=== PATIENT | female | born 1990 | race Two or more races ===

== ENCOUNTER 2016-11-02 17:42 | Emergency (ER) | payer MEDICAID ==
[~2016-11-02] VITALS: Ht 157.5 cm; Wt 73.5 kg
[~2016-11-02 17:42] MED LIST: PREN27TA7 OR
[2016-11-02 19:12] VITALS: BP 112/61
[2016-11-02 19:39] LABS: Urine Bilirubin Negative (Negative); Urine Blood TRACE /uL (Negative); Urine Ca Oxalate Crystal FEW (None Seen); Urine Color Yellow (Yellow); Urine Glucose Normal (Normal); Urine Ketone 1+ (Negative); Urine Mucus FEW (None Seen); Urine Nitrite Negative (Negative); Urine RBC 13 /hpf (0 - 4); Urine Squamous Epithelial Cell MOD /hpf (<5); Urine Urobilinogen Normal (Negative)
[2016-11-02 20:25] LABS: Basophils # (auto) 0.1 uL; Basophils % (auto) 0.4 % (0.0-2.0); Eosinophils # (auto) 0.1 uL; Eosinophils % (auto) 0.6 % (0.0-7.0); Hematocrit 40.4 % (36.0-46.0); Hemoglobin 13.6 g/dL (12.2-16.2); Lymphocytes # (auto) 2.3 uL; Lymphocytes % (auto) 14.1 % (10.0-50.0); Mean Corpuscular Hemoglobin 29.2 pg (28.0-32.0); Mean Corpuscular Hgb Conc. 33.7 g/dL (32.0-36.0); Mean Corpuscular Volume 86.8 fL (80.0-100.0); Mean Platelet Volume 6.4 fL (7.4-10.4); Monocytes # (auto) 0.6 uL; Neutrophils # (auto) 13.1 uL; Neutrophils % (auto) 80.9 % (37.0-80.0); Platelet Count (auto) 349 10^3/uL (140-450); Red Cell Distribution Width 13.4 % (11.6-16.0); White Blood Cell 16.2 10^3/uL (4.4-10.8)
[2016-11-02 20:35] LABS: Albumin 3.3 g/dL (3.4-5.0); BUN/Creatinine Ratio 15.7; Bilirubin, Total 0.2 mg/dL (0.2-1.0); Calcium 8.7 mg/dL (8.5-10.1); Potassium 3.7 mmol/L (3.5-5.1); Total Protein 7.4 g/dL (6.4-8.2)
== END 2016-11-02 21:51 | disposition home or self-care (01) ==
LOC: ER 18:09
DX: O23.41 Unspecified infection of urinary tract in pregnancy, first trimester (principal); S29.011A Strain of muscle and tendon of front wall of thorax, initial encounter; M79.605 Pain in left leg; Z79.899 Other long term (current) drug therapy; Z3A.14 14 weeks gestation of pregnancy; V43.52XA Car driver injured in collision with other type car in traffic accident, initial encounter; Y93.89 Activity, other specified; Y99.9 Unspecified external cause status; Y92.89 Other specified places as the place of occurrence of the external cause
CPT/HCPCS: 36415; 76805; 80053; 81001; 81025; 84702; 85025